=== PATIENT | female | born 1960 | race Caucasian/White ===

== ENCOUNTER 2025-08-10 09:06 | Outpatient (AMB) | payer MEDICARE, MEDICAID, SELFPAY ==
--- NOTE | 2025-08-10 09:08 | MHC.OFFVIS ---
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 She was doing okay, stable over the last year. Behavior has been okay for the most part, may have some occasional behavioral outbursts and gets tablet taken away. OCD is under control. Goes to day program 5 days/week. She manages her own medications. Sleep was okay. She is deaf. She has flashing/strobe lights and a bed shaker for fire safety. She has mild encephalopathy, possible seizures, and OCD. She has not been witnessed to have any kind of seizure activity. [facility] Medical History (Updated 08/10/25 @ 09:11 by Dot Olsen CNP) Encephalopathy OCD (obsessive compulsive disorder) Review of Systems Const Denies chills, Denies daytime sleepiness, Denies difficulty sleeping, Denies fatigue, Denies fever(s), Denies frequent falls, Denies headache(s), Denies increased appetite, Denies poor appetite, Denies snoring, Denies weakness, Denies weight gain and Denies weight loss Eyes Denies loss of vision ENT Denies vertigo, Denies dizziness, Denies headache(s) and Denies neck pain Card Denies chest pain at rest, Denies chest pain with activity, Denies syncope, Denies leg edema, Denies palpitations, Denies dyspnea and Denies dyspnea on exertion Resp Denies cough, Denies dyspnea, Denies dyspnea on exertion and Denies snoring GI Denies abdominal pain, Denies constipation, Denies heartburn, Denies diarrhea and Denies nausea Denies urinary frequency, Denies urinary incontinence and Denies urinary urgency Musc Denies abnormal gait, Denies back pain, Denies myalgias, Denies arthralgias, Denies neck pain, Denies numbness and Denies tingling Neuro Denies abnormal gait, Denies vertigo, Denies dizziness, Denies syncope, Denies frequent falls, Denies headache(s), Denies lack of coordination, Denies loss of vision, Denies memory loss, Denies numbness, Denies Other visual disturbances, Denies restless legs, Denies seizure-like activity, Denies tingling, Denies paresthesias, Denies tremor(s) and Denies weakness Psych Denies anxiety, Denies depression, Denies auditory hallucinations, Denies memory loss and Denies visual hallucinations Endo Denies fatigue and Denies palpitations Physical Exam Const Other: General Appearance:? normal, in no acute distress. Heart:? S1, S2 normal, no murmurs. Lungs:? clear anteriorly and posteriorly. Musculoskeletal:? normal. Extremities:? no edema. Psych:? alert, cooperative with exam. Neuro Other: Abnormal Neurological Findings:?Nonverbal, uses conventional sign language to communicate. Occasional tics. ? Mental Status: alert. Nonverbal, uses conventional sign language to communicate. Cranial Nerves: Pupils are equal, round, and reactive to light. External ocular muscles are intact. Visual horn are full, no ptosis. Face is symmetrical, no facial weakness or droop. Facial sensations are normal. Tongue protrudes in midline. Palate elevates symmetrically. Shoulder shrugging is normal Motor Examination: Normal muscle tone, bulk and strength. No atrophy or fasciculations. No drift of the extended upper extremities. DTR 2+. Plantars are flexor. Sensory Exam: Unable. Coordination: No ataxia. No titubation. Gait Exam: Within normal limits. Cerebellar Signs: [id number] is okay. Extrapyramidal System: No tremor, rigidity with normal facial expressions. No bradykinesia. No bradyphrenia. Normal arm swing and posture. No propulsion or retropulsion. Speech: Nonverbal. Assessment & Plan Assessment & Plan (1) Other encephalopathy: Code(s): G93.49 - Other encephalopathy Category: Medical Plan: Continue clomipramine 25mg 1 capsule twice a day. Medications: New clomipramine 25 mg PO BID 180 caps 3RF 90 days Coding Level of Care Code Est Pt Level 3 (35774) Diagnoses Other encephalopathy G93.49
--- OUTSIDE RECORDS SUMMARY | 2025-08-10 09:53 | XMS_ITS | Clinical Summary ---
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 Name Role Phone Prince Callahan DO Primary Care Provider [phone] Surgical History Surgery Date Site/Laterality Comments OTHER SURGICAL HISTORY PROCEDURE: DENIES PREVIOUS SURGERY Medical History Medical History Date Comments Deaf DX:Deaf Autism DX:Autism Compulsive behavior DX:Compulsiv e behavior Mental retardation DX:Mental ret ardation Akinesia DX:Akinesia Family History Medical History Relation Name Comments Breast cancer Neg Hx Colon cancer Neg Hx Ovarian cancer Neg Hx Relation Name Status Comments Sister Brionna Alive Social History Tobacco Use Types Packs/Day Years Used Date Smoking Tobacco: Never Smokeless Tobacco: Never Alcohol Use Standard Drinks/Week Comments No 0 (1 standard drink = 0.6 oz pur e alcohol) Comments No Sex and Gender Information Value Date Recorded Sex Assigned at Not on file Legal Sex Female 4:40 AM EST Gender Identity Not on file Sexual Orientation Not on file Obstetrics History Para Term AB IAB SAB Ectopic Multiple Livin g Live Births 0 0 0 0 Plan of Treatment Upcoming Encounters Date Type Department Care Team (Late st Contact Info) Description 10/10/2025 9:20 AM EST Appointment Radiology Department - [address] [phone] 10/10/2025 10:00 AM EST Appointment Bone Density - [address] [phone] Health Maintenance Due Date Last Done Comments Colorectal Cancer Screening: Colonoscopy 1962 DTaP,Tdap,and Td Vaccines (1 - Tdap) 1981 Cervical Cancer Screening: HPV 1983 Pneumococcal Vaccine: 50+ Years (1 of 1 - PCV) 2012 Zoster Vaccines (1 of 2) 2012 HIV Screening 09/01/2022 Hepatitis C Screening 09/01/2022 Medicare Annual Wellness Visit 09/01/2022 Social Influencers of Health Screening 09/01/2022 Depression Screening 09/29/2024 COVID-19 Vaccine (1 - season) 2025 Influenza Vaccine (#1) 2025 Breast Cancer Screening 10/06/2026 10/06/19 25, 09/05/2023, 08/30/2022, Additional history exists Cholesterol Screening (Lipid Panel) 02/28/2030 02/28/2025, 08/31/2024 RSV Immunization Adult Patients (1 - 1-dose 75+ series) 2037 HIB Vaccines Aged Out No longer eligi ble based on patient's age to complete this topic HPV Vaccines Aged Out No longer eligi ble based on patient's age to complete this topic Hepatitis A Vaccines Aged Out No long er eligible based on patient's age to complete this topic Hepatitis B Vaccines Aged Out No long er eligible based on patient's age to complete this topic IPV Vaccines Aged Out No longer eligi ble based on patient's age to complete this topic MMR Vaccines Aged Out No longer eligi ble based on patient's age to complete this topic Meningococcal ACWY Vaccine Aged Out N o longer eligible based on patient's age to complete this topic Meningococcal B Vaccine Aged Out No l onger eligible based on patient's age to complete this topic RSV Immunization Patients Under 20 months Aged Out No longer eligible based on patient's age to complete this topic Varicella Vaccines Aged Out No longer eligible based on patient's age to complete this topic Procedures Procedure Name Priority Date/Time Associated Diagnosis Comments LIPID PANEL WITH REFLEX TO DIRECT LDL Routine 02/28/2025 11:01 AM EDT Epigastric pain Hyperlipemia Problems with learning MG MAMMO DIGITAL SCREENING W CORY BILAT Routine 10/06/2024 2:58 PM EST Encounter for screening mammogram for breast cancer from Last 3 Months or Most Recently Relevant to Health Maintenance Results * Lipid panel with reflex to direct LDL (02/28/2025 11:01 AM EDT) Cholesterol 170 0 - 200 mg/dL LAB CHEMISTRY METHOD 02/28/2025 4:40 PM EDT [facility] Triglycerides 95 0 - 150 mg/dL LAB CHEMISTRY METHOD 02/28/2025 4:40 PM EDT [facility] HDL 54 >=40 mg/dL LAB CHEMISTRY METHOD 02/28/2025 4:40 PM EDT [facility] LDL Calculated 97 0 - 100 mg/dL LAB CHEMISTRY METHOD 02/28/2025 4:40 PM EDT [facility] VLDL Cholesterol Bruce 19 mg/dL LAB CHEMISTRY METHOD 02/28/2025 4:40 PM EDT [facility] Non HDL Chol. (LDL+VLDL) 116 <145 mg/dL LAB CHEMISTRY METHOD 02/28/2025 4:40 PM EDT [facility] Chol/HDL Ratio 3.1 0.0 - 4.4 LAB CHEMISTRY METHOD 02/28/2025 4:40 PM EDT [facility] Blood Venous blood specimen / Unknown Venipuncture / Unknown 02/28/2025 11:01 AM EDT 02/28/2025 11:01 AM EDT us Jami Patterson [facility] LAB BLOOD ORDERABLES Fi nal Result [facility] [address] [place] [address], [place] [phone] * MG Mammo Digital Screening w Cory bilat (10/06/2024 2:58 PM EST) Anatomical Region Laterality Modality Breast Bilateral Mammography 10/07/2024 4:58 PM EST Impressions 10/07/2024 5:02 PM EST BILATERAL BREASTS: Negative, no evidence of malignancy. Normal interval follow- up is recommended in 12 months. BREAST DENSITY: C - The breasts are heterogeneously dense which may obscure small masses. BI-RADS CATEGORY: 1 - NEGATIVE RECOMMENDATION: Screening bilateral mammogram is recommended in 1 year. Mammo Location: [facility], [address] [place] [address], [id number], . -------- FINAL REPORT -------- Dictated By: Manjula Garcia Dictated Date: 10/07/2024 16:58 ET Assigned Physician: Manjula Garcia Reviewed and Electronically Signed By: Manjula Garcia Signed Date: 10/07/2024 17:02 ET Workstation ID: [id number] Transcribed By: Self Edit Transcribed Date: 10/07/2024 16:58 ET Narrative 10/07/2024 5:02 PM EST STUDY: Bilateral screening mammography with tomosynthesis and CAD TECHNIQUE: Bilateral full-field digital screening mammography is obtained and read in conjunction with computer-aided detection. Tomosynthesis as well as 2-D C view imaging were obtained. Best possible images according to technologist notes. COMPARISON: Comparison made to multiple prior, most recent September 05, 2023, and most remote May 22, 2015. BILATERAL BREASTS: No significant masses, suspicious calcifications or other abnormalities are seen in either breast. Procedure Note Manjula Garcia MD - 10/07/2024 STUDY: Bilateral screening mammography with tomosynthesis and CAD TECHNIQUE: Bilateral full-field digital screening mammography is obtainedand read in conjunction with computer-aided detection. Tomosynthesis aswell as 2-D C view imaging were obtained. Best possible images accordingto technologist notes. COMPARISON: Comparison made to multiple prior, most recent August, and most remote May 22, 2015. BILATERAL BREASTS: No significant masses, suspicious calcifications orother abnormalities are seen in either breast. IMPRESSION: BILATERAL BREASTS: Negative, no evidence of malignancy. Normal intervalfollow-up is recommended in 12 months. BREAST DENSITY: C - The breasts are heterogeneously dense which mayobscure small masses. BI-RADS CATEGORY: 1 - NEGATIVE RECOMMENDATION: Screening bilateral mammogram is recommended in 1 year. Mammo Location: [facility], [address] [place] [address], [id number], . -------- FINAL REPORT -------- Dictated By: Manjula Garcia Dictated Date: 10/07/2024 16:58 ET Assigned Physician: Manjula Garcia Reviewed and Electronically Signed By: Manjula Garcia Signed Date: 10/07/2024 17:02 ET Workstation ID: [id number] Transcribed By: Self Edit Transcribed Date: 10/07/2024 16:58 ET Prince Callahan DO [facility] BI PROCEDURES Final Resul t from Last 3 Months or Most Recently Relevant to Health Maintenance Insurance MEDICARE [place] - [place] Care Teams Dye Boarding Machine Operator Relationship Specialty Start Date End Date Prince Callahan DO [address] [place] [phone] PCP - General Internal Medicine 06/16/18
== END 2025-08-10 09:33 | disposition home or self-care (01) ==
PROVIDERS: PCP Internal Medicine; Referring Provider Internal Medicine; Visit Provider Registered Nurse
DX: G93.49 Other encephalopathy (principal)
CPT/HCPCS: 99213

== ENCOUNTER → 2025-08-10 09:06 | Outpatient (BNVA) | payer MEDICARE, MEDICAID, SELFPAY | PROVIDERS: PCP Internal Medicine; Referring Provider Internal Medicine; Visit Provider Registered Nurse | DX: G93.49 Other encephalopathy (principal); H91.93 Unspecified hearing loss, bilateral; F60.5 Obsessive-compulsive personality disorder | CPT/HCPCS: 99212 ==